=== PATIENT | male | born 1995 | race Caucasian/White ===

== ENCOUNTER 2016-09-15 21:44 | Emergency (ER) | payer BC ==
[~2016-09-15] VITALS: Ht 180.3 cm; Wt 93.9 kg
[~2016-09-15 21:44] MED LIST: [UNRECOGNIZED DRUG - CODE] PO
[2016-09-15 22:00] VITALS: BP 139/80; PULSE 75; RESP 16; TEMP 97.8; O2SAT 98
--- NOTE | 2016-09-15 22:50 | NUR ---
Placed in room 01 . Placed on quality assurance monitor final, blood pressure machine and pulse oximeter. To gown for exam. Side rails up. Report given to CRICKET Douglas.
--- NOTE | 2016-09-15 23:01 | NUR ---
Patient to ER C/O anxiety with palpitations. Denies chest pain, diaphoresis, denies fever or N/V. Also states that in the last week his eye is been twitching. AAOx4, unlabored rbeathing, no signs of acute distress.
--- NOTE | 2016-09-15 23:32 | NUR ---
ER MD Wright at bedside for evaluation
[2016-09-16] MEDS ORDERED: LORazepam 1 MG TABLET PO ONE
--- NOTE | 2016-09-16 00:23 | NUR ---
Patient calm in bed. VS WNL. No signs of acute distress.
[2016-09-16 00:48] LABS: BASOPHILS % (AUTO) 0.1 % (0.0-2.0); EOSINOPHILS # (AUTO) 0.1 K/uL (0.0-0.4); EOSINOPHILS % (AUTO) 0.5 % (0.0-4.0); HEMATOCRIT 43.7 % (36-54); HEMOGLOBIN 14.8 g/dL (14.0-18.0); LYMPHOCYTES # (AUTO) 2.9 K/uL (1.0-5.5); LYMPHOCYTES % (AUTO) 24.7 % (20.5-51.5); MEAN CORPUSCULAR HEMOGLOBIN 28 pg (27-31); MEAN CORPUSCULAR HGB CONC 34 % (32-36); MEAN CORPUSCULAR VOLUME 82 fL (79.0-98.0); MONOCYTES # (AUTO) 0.7 K/uL (0.0-1.0); MONOCYTES % (AUTO) 5.5 % (1.7-9.3); NEUTROPHILS # (AUTO) 8.2 K/uL (1.8-7.7); NEUTROPHILS % (AUTO) 69.2 % (40.0-70.0); PLATELET COUNT (AUTO) 261 K/uL (130-430); RED BLOOD CELL COUNT(AUTO) 5.36 MIL/uL (4.2-6.2); RED CELL DISTRIBUTION WIDTH 11.8 % (9.0-15.0); WHITE BLOOD COUNT (AUTO) 11.9 K/uL (4.8-10.8)
[2016-09-16 00:52] LABS: POTASSIUM 4.6 mmol/L (3.5-5.1)
[2016-09-16 00:57] LABS: ALBUMIN 4.6 g/dL (3.4-4.8); TOTAL BILIRUBIN 0.7 mg/dL (0.0-1.0); TOTAL PROTEIN, SERUM 7.8 g/dL (6.4-8.3)
[2016-09-16 01:40] VITALS: BP 124/61; PULSE 71; RESP 16; TEMP 97.9; O2SAT 99
--- NOTE | 2016-09-16 01:40 | NUR ---
Patient given written and verbal discharge instructions and verbalizes understanding. ER MD Wright discussed with patient the results and treatment provided. Given copies of tests performed in ER. Patient in stable condition. ID arm band removed. Rx of ativan given. Patient educated on pain management and to follow up with PMD. Pain Scale 0/10. Opportunity for questions provided and answered.
== END 2016-09-16 01:40 | disposition home or self-care (01) ==
LOC: SED 21:44
DX: F41.9 Anxiety disorder, unspecified (principal); R42 Dizziness and giddiness
CPT/HCPCS: 36415; 80053; 84484; 85025; 93005; 99285

== ENCOUNTER 2018-11-07 23:21 | Emergency (ER) | payer BC ==
[~2018-11-07] VITALS: Ht 177.8 cm; Wt 95.3 kg
--- NOTE | 2018-11-07 23:29 | NUR ---
Patient to ER bed 8 to gown for evaluation. Side rails up.
[2018-11-07 23:30] VITALS: BP_SYST 138
--- NOTE | 2018-11-07 23:32 | NUR ---
Pt complains of left eye irritation that started after lunch. Pt states he started to feel as if something was inside his eye lid and felt as if it was scratching his eye. Pt denies trauma. Noted minor swelling to left eye lid and redness to sclera. Per pt, "a little bit of blurred vision." No other injuries/complaints per patient or noted. Mother at bedside.
--- NOTE | 2018-11-07 23:45 | NUR ---
ER Dr. Quintanilla at bedside examining patient.
[2018-11-08] MEDS ORDERED: TOBRAMYCIN OP ONE
[2018-11-08] MEDS ORDERED: [UNRECOGNIZED DRUG - OTHER] OP ONE
--- NOTE | 2018-11-08 00:03 | NUR ---
ER Dr. Quintanilla at bedside explaining results to patient/mother.
[2018-11-08 00:10] VITALS: BP_SYST 138
--- NOTE | 2018-11-08 00:10 | NUR ---
Patient given written and verbal discharge instructions and verbalizes understanding. ER MD discussed with patient the results and treatment provided. Patient in stable condition. ID arm band removed. Rx of Tobradex given. Patient educated on pain management and to follow up with PMD. Pain Scale 2. Opportunity for questions provided and answered. Medication side effect fact sheet provided.
== END 2018-11-08 00:10 | disposition home or self-care (01) ==
LOC: SED 23:21
DX: H10.89 Other conjunctivitis (principal); R03.0 Elevated blood-pressure reading, without diagnosis of hypertension
CPT/HCPCS: 99283